=== PATIENT | female | born 1980 | race Caucasian/White ===

== ENCOUNTER → 2017-01-31 | Outpatient (CLI) | payer BC ==
[~2017-01-31] MED LIST: ACIDOPHILIS PO; ACIPHEX20 MG PO; AMOXICILLIN 8751 TAB PO; CARAFATE 1GM1 G PO; ECHINACEA400 MG PO; FERROUS GLUCONA27 MG PO; FOLIC ACID1 MG PO; IBU400 MG PO; INFANTS AQU400 IU/ML PO; MOTRIN 800800 MG/TAB PO; NORCO 325 MG-7.1 TAB PO; PERCOCET 325 MG1 TA2 PO; PRENATAL1 TA2 PO; PRILOSEC 20MG20 MG PO; PRILOSEC10 MG PO; PROBIOTIC FORMU1 CAP PO; SMZ/TMPDS PO; TYLENOL 500MG500 MG PO; ZOFRAN4 M1 PO; ZOLOFT50 MG PO
== END ==
LOC: ZCOL.LAB 16:34
DX: L02.01 Cutaneous abscess of face (principal)

== ENCOUNTER 2017-02-01 11:28 | Inpatient (IN) | payer BC ==
[~2017-02-01] VITALS: Ht 175.3 cm; Wt 84.0 kg
[~2017-02-01 11:28] MED LIST changes: -AMOXICILLIN 8751 TAB PO; -IBU400 MG PO; -PRILOSEC 20MG20 MG PO; -SMZ/TMPDS PO
[2017-02-01 13:11] LABS: EOS # 0.1 (0.0-0.7); EOS % 3.7 % (0-4.0); GRAN # 2.9 (1.4-6.5); GRAN % 75.9 % (42.2-75.2); LYMPH # 0.3 (1.2-3.4); LYMPH % 8.1 % (20.0-51.0); MEAN CELL VOLUME 63 fl (80.0-100.0); MEAN CORPUSCULAR HGB CONC 31 g/dl (33.0-37.0); MONO # 0.4 (0.1-0.6); MONO % 11.5 % (1.7-9.3); PLATELET COUNT 132 K/mm3 (130-400); RED BLOOD COUNT 5.54 M/mm3 (4.10-5.30); REDCELL DISTRIBUTION WIDTH-CV 15.7 % (11.5-14.5); WHITE BLOOD COUNT 3.8 K/mm3 (4.8-10.8)
[2017-02-01 13:12] LABS: PH 5 (5-8); URINE APPEARANCE Hazy; URINE BACTERIA None Seen /hpf; URINE BILIRUBIN Negative (NEGATIVE); URINE BLOOD 1+ (NEGATIVE); URINE COLOR Yellow; URINE GLUCOSE Negative (NEGATIVE); URINE KETONE Negative (NEGATIVE); URINE WBC 0-2 /hpf
[2017-02-01 13:13] LABS: HEMATOCRIT 34.7 % (37.0-47.0); HEMOGLOBIN 10.9 g/dl (12.5-16.0); MEAN CORPUSCULAR HEMOGLOBIN 20 pg (27.0-31.0)
[2017-02-01 13:14] LABS: ADJUSTED CALCIUM 8.7 mg/dL (8.4-10.2); BILIRUBIN,TOTAL 0.5 mg/dL (0.0-1.0); C-REACTIVE PROTEIN 1.8 mg/dL (0.0-0.9); CALCIUM 8.7 mg/dL (8.4-10.2); CREATININE, serum 0.69 mg/dL (0.52-1.25); POTASSIUM 3.8 mmol/L (3.4-5.0); TOTAL PROTEIN 6.5 gm/dL (6.4-8.2)
[2017-02-01 16:17] LABS: CEREBROSPINAL TUBE #1; CSF APPEARANCE CLEAR; CSF COLOR COLORLESS
[2017-02-01 16:39] LABS: CEREBROSPINAL TUBE #4; CSF APPEARANCE CLEAR; CSF COLOR COLORLESS
[2017-02-01] MEDS ORDERED: PRILOSEC 20MG20 MG PO (18:08)
[2017-02-01] MEDS ORDERED: SMZ/TMPDS PO (18:09)
[2017-02-01] MEDS ORDERED: AMOXICILLIN 8751 TAB PO (18:09)
[2017-02-01 19:55] VITALS: BP 103/63; PULSE 99; TEMP 101.3
[2017-02-02] VITALS (11 sets, daily range): BP systolic 85–120; BP diastolic 48–65; PULSE 46–112; TEMP 97.8–101.5
[2017-02-02 06:59] LABS: MEAN CELL VOLUME 63 fl (80.0-100.0); MEAN CORPUSCULAR HGB CONC 31 g/dl (33.0-37.0); PLATELET COUNT 71 K/mm3 (130-400); RED BLOOD COUNT 4.39 M/mm3 (4.10-5.30); REDCELL DISTRIBUTION WIDTH-CV 15.5 % (11.5-14.5)
[2017-02-02 07:01] LABS: HEMATOCRIT 27.8 % (37.0-47.0); HEMOGLOBIN 8.5 g/dl (12.5-16.0); MEAN CORPUSCULAR HEMOGLOBIN 19 pg (27.0-31.0)
[2017-02-02 07:17] LABS: ALBUMIN 2.6 gm/dL (3.5-5.0); BILIRUBIN,TOTAL 0.3 mg/dL (0.0-1.0); CALCIUM 6.9 mg/dL (8.4-10.2); CREATININE, serum 0.74 mg/dL (0.52-1.25); POTASSIUM 3.3 mmol/L (3.4-5.0); TOTAL PROTEIN 4.6 gm/dL (6.4-8.2)
[2017-02-02 08:59] LABS: BAND 24 % (0-10); EOSINOPHIL 4 % (0-4); NEUTROPHILS 40 % (42.0-75.2); TOTAL CELLS COUNTED 100
[2017-02-02 09:00] LABS: OVALOCYTES 1+; PLATELET ESTIMATE DECREASED (NORMAL)
[2017-02-02 09:01] LABS: TEAR DROP CELLS 1+
[2017-02-02 09:02] LABS: MICROCYTOSIS 2+
[2017-02-02 09:03] LABS: ANISOCYTOSIS 1+
[2017-02-02 11:07] LABS: ADD PATHOLOGY DIFF REVIEW YES
[2017-02-03 02:48] VITALS: BP 104/56; PULSE 67; TEMP 98.5
[2017-02-03 07:59] LABS: ADJUSTED CALCIUM 8.6 mg/dL (8.4-10.2); BILIRUBIN,TOTAL 0.4 mg/dL (0.0-1.0); CALCIUM 7.8 mg/dL (8.4-10.2); CREATININE, serum 0.62 mg/dL (0.52-1.25); MAGNESIUM 1.8 mg/dL (1.6-2.3); MEAN CELL VOLUME 64 fl (80.0-100.0); MEAN CORPUSCULAR HGB CONC 30 g/dl (33.0-37.0); PLATELET COUNT 111 K/mm3 (130-400); POTASSIUM 3.7 mmol/L (3.4-5.0); REDCELL DISTRIBUTION WIDTH-CV 16.1 % (11.5-14.5); TOTAL PROTEIN 5.2 gm/dL (6.4-8.2); WHITE BLOOD COUNT 4.2 K/mm3 (4.8-10.8)
[2017-02-03 08:04] LABS: ADD PATHOLOGY DIFF REVIEW NO; HEMATOCRIT 29.9 % (37.0-47.0); HEMOGLOBIN 9.1 g/dl (12.5-16.0); MEAN CORPUSCULAR HEMOGLOBIN 19 pg (27.0-31.0)
[2017-02-03 08:13] VITALS: BP 109/72; PULSE 65; TEMP 97.7
[2017-02-03 09:05] LABS: BAND 25 % (0-10); EOSINOPHIL 7 % (0-4); HYPOCHROMIA 2+; NEUTROPHILS 21 % (42.0-75.2); OVALOCYTES 1+; PLATELET ESTIMATE DECREASED (NORMAL); TOTAL CELLS COUNTED 100
[2017-02-03 10:31] LABS: HEPARIN INDUCED ANTIBODY Negative (Negative); HEPARIN INDUCED OD 0.119 (())
[2017-02-03 12:04] VITALS: BP 105/64; PULSE 73; TEMP 98.4
[2017-02-03 16:39] VITALS: BP 112/68; PULSE 60; TEMP 98.2
[2017-02-03 17:18] LABS: HIV 1/2 Antibodies Non-Reactive; HIV-1p24 Antigen Non-Reactive
[2017-02-03 19:48] VITALS: BP 110/65; PULSE 63; TEMP 98.3
[2017-02-03 23:18] VITALS: BP 120/82; PULSE 60; TEMP 98.5
[2017-02-04 03:52] VITALS: BP 107/68; PULSE 70; TEMP 98.3
[2017-02-04 07:56] LABS: MEAN CELL VOLUME 63 fl (80.0-100.0); MEAN CORPUSCULAR HGB CONC 31 g/dl (33.0-37.0); PLATELET COUNT 95 K/mm3 (130-400); RED BLOOD COUNT 4.28 M/mm3 (4.10-5.30); REDCELL DISTRIBUTION WIDTH-CV 16.1 % (11.5-14.5)
[2017-02-04 07:57] LABS: HEMOGLOBIN 8.3 g/dl (12.5-16.0); MEAN CORPUSCULAR HEMOGLOBIN 19 pg (27.0-31.0)
[2017-02-04 07:58] LABS: ADD PATHOLOGY DIFF REVIEW NO
[2017-02-04 08:00] VITALS: BP 122/81; PULSE 55; TEMP 98.1
[2017-02-04 08:10] LABS: ADJUSTED CALCIUM 8.8 mg/dL (8.4-10.2); ALBUMIN 2.7 gm/dL (3.5-5.0); BILIRUBIN,TOTAL 0.2 mg/dL (0.0-1.0); CALCIUM 7.8 mg/dL (8.4-10.2); CREATININE, serum 0.57 mg/dL (0.52-1.25); MAGNESIUM 1.7 mg/dL (1.6-2.3); POTASSIUM 3.8 mmol/L (3.4-5.0); TOTAL PROTEIN 4.7 gm/dL (6.4-8.2)
[2017-02-04 09:05] LABS: ANISOCYTOSIS 1+; BAND 18 % (0-10); BASOPHIL 2 % (0-2); EOSINOPHIL 3 % (0-4); METAMYELOCYTE 1 % (0-0); MYELOCYTE 2 % (0-0); NEUTROPHILS 16 % (42.0-75.2); PLATELET ESTIMATE DECREASED (NORMAL); TOTAL CELLS COUNTED 100
[2017-02-04 09:06] LABS: HYPOCHROMIA 2+; TEAR DROP CELLS 1+
[2017-02-04 11:31] VITALS: BP 125/81; PULSE 54; TEMP 98.2
[2017-02-04 12:54] LABS: CSF,IGG 0.8 mg/dL (<=8.1); IGG/ALBUMIN SERUM 0.13 (<=0.40)
[2017-02-04 13:04] LABS: ALBUMIN CSF 11.6 mg/dL (<=27.0); CSF IGG/ALBUMIN 0.07 (<=0.21); CSF-IGG INDEX 0.54 (<=0.85)
[2017-02-04 15:25] VITALS: BP 126/75; PULSE 54; TEMP 98.3
[2017-02-04 20:13] VITALS: BP 129/81; PULSE 56; TEMP 98.9
[2017-02-05 00:58] VITALS: BP 149/87; PULSE 50; TEMP 98.3
[2017-02-05 04:55] VITALS: BP 134/71; PULSE 50; TEMP 97.6
[2017-02-05 07:14] LABS: BASO % 0.4 % (0.0-2.0); EOS # 0.2 (0.0-0.7); EOS % 3.2 % (0-4.0); GRAN # 1.8 (1.4-6.5); GRAN % 39.5 % (42.2-75.2); LYMPH # 2.2 (1.2-3.4); LYMPH % 47.5 % (20.0-51.0); MEAN CELL VOLUME 62 fl (80.0-100.0); MEAN CORPUSCULAR HGB CONC 31 g/dl (33.0-37.0); MONO # 0.4 (0.1-0.6); MONO % 9.2 % (1.7-9.3); PLATELET COUNT 119 K/mm3 (130-400); RED BLOOD COUNT 4.58 M/mm3 (4.10-5.30); REDCELL DISTRIBUTION WIDTH-CV 15.9 % (11.5-14.5); RETIC % 1.2 % (0.5-3.52); WHITE BLOOD COUNT 4.7 K/mm3 (4.8-10.8)
[2017-02-05 07:19] LABS: HEMATOCRIT 28.4 % (37.0-47.0); HEMOGLOBIN 8.8 g/dl (12.5-16.0); MEAN CORPUSCULAR HEMOGLOBIN 19 pg (27.0-31.0)
[2017-02-05 07:24] VITALS: BP 146/87; PULSE 54; TEMP 98.9
[2017-02-05 07:26] LABS: ALBUMIN 2.9 gm/dL (3.5-5.0); BILIRUBIN,TOTAL 0.4 mg/dL (0.0-1.0); CALCIUM 8.1 mg/dL (8.4-10.2); CREATININE, serum 0.59 mg/dL (0.52-1.25); MAGNESIUM 1.7 mg/dL (1.6-2.3); POTASSIUM 3.5 mmol/L (3.4-5.0); TOTAL PROTEIN 4.8 gm/dL (6.4-8.2)
[2017-02-05 13:13] VITALS: BP 132/69; PULSE 55; TEMP 99.4
[2017-02-05 16:20] VITALS: BP 137/76; PULSE 68; TEMP 99.1
[2017-02-05 19:55] VITALS: BP 137/72; PULSE 63; TEMP 99.4
[2017-02-06 04:23] VITALS: BP 130/76; PULSE 74; TEMP 98.6
[2017-02-06 08:16] VITALS: BP 122/70; PULSE 85; TEMP 99.4
[2017-02-06 11:52] VITALS: BP 123/70; PULSE 74; TEMP 98.7
[2017-02-06 15:36] VITALS: BP 128/74; PULSE 78; TEMP 98.7
[2017-02-06 20:41] VITALS: BP 141/85; PULSE 74; TEMP 99.4
[2017-02-06 23:29] VITALS: BP 148/80; PULSE 70; TEMP 100.2
[2017-02-07 02:19] VITALS: BP 151/83; PULSE 68; TEMP 99.5
[2017-02-07 07:10] LABS: POTASSIUM 3.3 mmol/L (3.4-5.0)
[2017-02-07 08:44] VITALS: BP 144/87; PULSE 68; TEMP 98.5
[2017-02-07 09:23] LABS: BASO % 0.2 % (0.0-2.0); EOS % 0.5 % (0-4.0); GRAN # 3.8 (1.4-6.5); GRAN % 65.1 % (42.2-75.2); LYMPH # 1.3 (1.2-3.4); LYMPH % 22.4 % (20.0-51.0); MEAN CELL VOLUME 62 fl (80.0-100.0); MEAN CORPUSCULAR HGB CONC 31 g/dl (33.0-37.0); MONO # 0.7 (0.1-0.6); MONO % 11.1 % (1.7-9.3); PLATELET COUNT 181 K/mm3 (130-400); RED BLOOD COUNT 4.98 M/mm3 (4.10-5.30); REDCELL DISTRIBUTION WIDTH-CV 15.9 % (11.5-14.5); WHITE BLOOD COUNT 5.9 K/mm3 (4.8-10.8)
[2017-02-07 09:32] LABS: HEMATOCRIT 30.8 % (37.0-47.0); HEMOGLOBIN 9.6 g/dl (12.5-16.0); MEAN CORPUSCULAR HEMOGLOBIN 19 pg (27.0-31.0)
[2017-02-07 09:37] LABS: ADJUSTED CALCIUM 8.9 mg/dL (8.4-10.2); ALBUMIN 3.2 gm/dL (3.5-5.0); BILIRUBIN,TOTAL 0.8 mg/dL (0.0-1.0); CALCIUM 8.3 mg/dL (8.4-10.2); CREATININE, serum 0.55 mg/dL (0.52-1.25); MAGNESIUM 1.7 mg/dL (1.6-2.3); TOTAL PROTEIN 5.5 gm/dL (6.4-8.2)
[2017-02-07 11:53] VITALS: BP 146/89; PULSE 64; TEMP 98.3
[2017-02-07 12:09] LABS: PH 7 (5-8); SQUAMOUS EPITHELIAL 0-2 /hpf; URINE APPEARANCE Clear; URINE BACTERIA None Seen /hpf; URINE BILIRUBIN Negative (NEGATIVE); URINE BLOOD 1+ (NEGATIVE); URINE COLOR Straw; URINE GLUCOSE Negative (NEGATIVE); URINE KETONE 1+ (NEGATIVE); URINE RBC 0-2 /hpf; URINE UROBILINOGEN Negative (NEGATIVE); URINE WBC 0-2 /hpf
[2017-02-07 12:44] LABS: AMPHETAMINE URINE NEGATIVE; BARBITURATES URINE NEGATIVE; BENZODIAZEPINES URINE POSITIVE; BUPRENORPHINE URINE NEGATIVE; METHADONE URINE NEGATIVE; OPIATES URINE NEGATIVE; OXYCODONE URINE NEGATIVE; PHENCYCLIDINE URINE NEGATIVE; PROPOXYPHENE URINE NEGATIVE; THC CANNABINOIDS URINE NEGATIVE
[2017-02-07 16:01] VITALS: BP 133/83; PULSE 66; TEMP 98.2
[2017-02-07 21:16] VITALS: BP 145/81; PULSE 70; TEMP 98.7
[2017-02-07 23:34] VITALS: BP 129/88; PULSE 76; TEMP 99.4
[2017-02-08 02:56] VITALS: BP 151/91; PULSE 59; TEMP 97.4
[2017-02-08 06:27] LABS: BASO % 0.3 % (0.0-2.0); EOS # 0.1 (0.0-0.7); EOS % 1.3 % (0-4.0); GRAN # 4.1 (1.4-6.5); GRAN % 61.1 % (42.2-75.2); HEMATOCRIT 29.7 % (37.0-47.0); HEMOGLOBIN 9.2 g/dl (12.5-16.0); LYMPH # 1.6 (1.2-3.4); LYMPH % 23.7 % (20.0-51.0); MEAN CELL VOLUME 61 fl (80.0-100.0); MEAN CORPUSCULAR HEMOGLOBIN 19 pg (27.0-31.0); MEAN CORPUSCULAR HGB CONC 31 g/dl (33.0-37.0); MONO # 0.9 (0.1-0.6); MONO % 12.9 % (1.7-9.3); PLATELET COUNT 224 K/mm3 (130-400); RED BLOOD COUNT 4.85 M/mm3 (4.10-5.30); REDCELL DISTRIBUTION WIDTH-CV 15.9 % (11.5-14.5); WHITE BLOOD COUNT 6.7 K/mm3 (4.8-10.8)
[2017-02-08 06:43] LABS: ADJUSTED CALCIUM 9.1 mg/dL (8.4-10.2); ALBUMIN 3.1 gm/dL (3.5-5.0); BILIRUBIN,TOTAL 0.9 mg/dL (0.0-1.0); CALCIUM 8.4 mg/dL (8.4-10.2); CREATININE, serum 0.6 mg/dL (0.52-1.25); MAGNESIUM 1.7 mg/dL (1.6-2.3); POTASSIUM 3.5 mmol/L (3.4-5.0); TOTAL PROTEIN 5.3 gm/dL (6.4-8.2)
[2017-02-08 08:17] VITALS: BP 154/94; PULSE 66; TEMP 99
[2017-02-08 11:55] VITALS: BP 149/80; PULSE 62; TEMP 98
[2017-02-08 12:35] LABS: EBV CAPSID IGM QUANTITATIVE >160.0 U/mL (<36.0); EBV EARLY ANTIGEN IGG Negative (()); EBV EARLY IGG QUANTITATIVE <5.0 U/mL (<9.0); EBV IGM AB Positive (()); EPSTEIN-BARR VIRUS VCA-IgG Positive (())
[2017-02-08] MEDS ORDERED: IBU400 MG PO (12:52)
[2017-02-08 21:16] LABS: LEGIONELLA PNEUMOPHILIA Negative (Negative)
[2017-02-09 08:51] LABS: ROCKY MOUNTAIN SPOT FEVER-ABS <1:16 (<1:16)
[2017-02-09 11:10] LABS: LYME IgG WESTERN BLOT Negative (Negative)
== END 2017-02-08 14:28 | disposition home or self-care (01) | DRG 866 ==
LOC: COL.ER 11:28 → MEDICAL 17:24
PROVIDERS: Internal Medicine; Internal Medicine Infectious Disease; Nurse Practitioner Family; Physician Assistant; Psychiatry & Neurology Neurology
PROC: 009U3ZX Drainage of Spinal Canal, Percutaneous Approach, Diagnostic (ICD-10-PCS; principal; 2017-02-01)
DX: B27.00 Gammaherpesviral mononucleosis without complication (principal); L03.211 Cellulitis of face; B95.7 Other staphylococcus as the cause of diseases classified elsewhere; E87.6 Hypokalemia; D69.6 Thrombocytopenia, unspecified; M50.21 Other cervical disc displacement, high cervical region; K58.0 Irritable bowel syndrome with diarrhea; D56.3 Thalassemia minor; F41.9 Anxiety disorder, unspecified
CPT/HCPCS: 99223-AI; 99232-AI; 99233-AI; 99239; A9585; J0133; J0696; J1170; J1650; J1885; J2060; J2405; J2543; J2550; J2765; J3030; J3370; J3480; J7030; J7050; Q9967

== ENCOUNTER → 2017-10-11 | Outpatient (CLI) | payer BC ==
[~2017-10-11] MED LIST changes: +AMOXICILLIN 8751 TAB PO; +IBU400 MG PO; +PRILOSEC 20MG20 MG PO; +SMZ/TMPDS PO
== END ==
LOC: MHCPAIN 13:48
DX: G89.29 Other chronic pain (principal); M54.12 Radiculopathy, cervical region; M47.812 Spondylosis without myelopathy or radiculopathy, cervical region; R51 Headache
CPT/HCPCS: G0463

== ENCOUNTER → 2018-03-03 | Outpatient (CLI) | payer BC | LOC: COL.RAD 13:27 | DX: R07.9 Chest pain, unspecified (principal); R10.11 Right upper quadrant pain; Z90.49 Acquired absence of other specified parts of digestive tract | CPT/HCPCS: Q9967 ==

== ENCOUNTER → 2018-05-18 | Outpatient (CLI) | payer BC | LOC: MC.RAD 09:57 | DX: Z12.31 Encounter for screening mammogram for malignant neoplasm of breast (principal) ==

== ENCOUNTER 2018-10-21 10:16 | Emergency (ER) | payer BC ==
[~2018-10-21] VITALS: Ht 175.3 cm; Wt 77.2 kg
[2018-10-21 10:19] VITALS: BP 121/68; PULSE 80; TEMP 98.4
[2018-10-21] MEDS ORDERED: AMOXICILLIN 8751 TAB PO (10:44)
== END 2018-10-21 11:00 | disposition home or self-care (01) ==
LOC: COL.ER 10:16
DX: J32.9 Chronic sinusitis, unspecified (principal); F32.9 Major depressive disorder, single episode, unspecified; Z88.1 Allergy status to other antibiotic agents

== ENCOUNTER → 2019-02-21 | Outpatient (CLI) | payer BC | LOC: MHCPAIN 13:34 | DX: G89.29 Other chronic pain (principal); M54.12 Radiculopathy, cervical region; R51 Headache; M47.812 Spondylosis without myelopathy or radiculopathy, cervical region | CPT/HCPCS: G0463 ==

== ENCOUNTER → 2019-03-22 | Outpatient (CLI) | payer BC | LOC: MHCPAIN 07:46 | DX: M47.812 Spondylosis without myelopathy or radiculopathy, cervical region (principal); M54.12 Radiculopathy, cervical region | CPT/HCPCS: J1100; Q9967 ==

== ENCOUNTER → 2019-04-12 | Outpatient (CLI) | payer BC | LOC: MHCPAIN 07:42 | DX: G89.29 Other chronic pain (principal); M54.12 Radiculopathy, cervical region; M47.812 Spondylosis without myelopathy or radiculopathy, cervical region | CPT/HCPCS: G0463; J1100; Q9967 ==

== ENCOUNTER → 2019-09-05 | Outpatient (CLI) | payer BC | LOC: MC.RAD 14:09 | DX: Z12.31 Encounter for screening mammogram for malignant neoplasm of breast (principal) ==

== ENCOUNTER → 2020-09-12 | Outpatient (CLI) | payer BC | LOC: MC.RAD 10:30 | DX: Z12.31 Encounter for screening mammogram for malignant neoplasm of breast (principal); Z98.890 Other specified postprocedural states ==

== ENCOUNTER 2020-10-08 10:06 | Emergency (ER) | payer BC ==
[~2020-10-08] VITALS: Ht 175.3 cm; Wt 74.1 kg
[2020-10-08 10:25] VITALS: TEMP 97.5
[2020-10-08 11:47] LABS: BASO % 0.5 % (0.0-2.0); GRAN # 5.4 (1.4-6.5); GRAN % 85.7 % (42.2-75.2); HEMATOCRIT 39.6 % (37.0-47.0); HEMOGLOBIN 12.5 g/dl (12.5-16.0); LYMPH # 0.4 (1.2-3.4); LYMPH % 6.2 % (20.0-51.0); MEAN CELL VOLUME 65 fl (80.0-100.0); MEAN CORPUSCULAR HEMOGLOBIN 20 pg (27.0-31.0); MEAN CORPUSCULAR HGB CONC 32 g/dl (33.0-37.0); MONO # 0.5 (0.1-0.6); MONO % 7.3 % (1.7-9.3); PLATELET COUNT 152 K/mm3 (130-400); RED BLOOD COUNT 6.14 M/mm3 (4.10-5.30); REDCELL DISTRIBUTION WIDTH-CV 15.7 % (11.5-14.5)
[2020-10-08 11:51] LABS: ALBUMIN 4.2 gm/dL (3.5-5.0); CREATININE, serum 0.64 (0.52-1.25); POTASSIUM 3.5 mmol/L (3.4-5.0); TOTAL PROTEIN 6.9 gm/dL (6.4-8.2)
[2020-10-08 12:44] LABS: COLLECTION METHOD CLEAN CATCH
[2020-10-08 12:51] LABS: MUCOUS Present /lpf; PH 5 (5-8); URINE APPEARANCE Hazy; URINE BACTERIA Rare /hpf; URINE BILIRUBIN Negative (NEGATIVE); URINE BLOOD Negative (NEGATIVE); URINE COLOR Yellow; URINE GLUCOSE Negative (NEGATIVE); URINE KETONE Trace (NEGATIVE); URINE LEUKOCYTE ESTERASE 3+ (NEGATIVE); URINE NITRATE Negative (NEGATIVE); URINE PROTEIN(semi-quant) Negative (NEGATIVE); URINE UROBILINOGEN Negative (NEGATIVE)
[2020-10-08] MEDS ORDERED: ZOFRAN ODT4 MG PO (14:11)
[2020-10-08] MEDS ORDERED: DIFLUCAN150 MG PO (14:12)
[2020-10-08 14:17] VITALS: BP 111/75; PULSE 88
== END 2020-10-08 14:22 | disposition home or self-care (01) ==
LOC: COL.ER 10:06
PROVIDERS: Physician Assistant
DX: R16.1 Splenomegaly, not elsewhere classified (principal); B37.3 Candidiasis of vulva and vagina; R94.5 Abnormal results of liver function studies; Z90.710 Acquired absence of both cervix and uterus; Z90.49 Acquired absence of other specified parts of digestive tract; Z88.1 Allergy status to other antibiotic agents; Z87.39 Personal history of other diseases of the musculoskeletal system and connective tissue
CPT/HCPCS: J1885; J2405; J7030; Q9967

== ENCOUNTER → 2021-10-15 | Outpatient (CLI) | payer BC ==
[~2021-10-15] MED LIST changes: +DIFLUCAN150 MG PO; +ZOFRAN ODT4 MG PO
== END ==
LOC: MC.RAD 09:41
DX: Z12.31 Encounter for screening mammogram for malignant neoplasm of breast (principal)

== ENCOUNTER → 2022-12-17 | Outpatient (CLI) | payer OTHER | LOC: MC.RAD 10:27 | DX: Z12.31 Encounter for screening mammogram for malignant neoplasm of breast (principal) ==

== ENCOUNTER → 2024-02-10 | Outpatient (CLI) | payer OTHER | LOC: MC.RAD 07:04 | DX: Z12.31 Encounter for screening mammogram for malignant neoplasm of breast (principal) ==